=== PATIENT | female | born 1960 | race Caucasian/White ===

== ENCOUNTER 2022-04-11 11:31 | Emergency (ER) | payer OTHER, MEDICARE, MEDICAID | END 2022-04-11 14:14 | disposition home or self-care (01) | LOC: CSHERS 11:31 | DX: S13.4XXA Sprain of ligaments of cervical spine, initial encounter (principal); S16.1XXA Strain of muscle, fascia and tendon at neck level, initial encounter; S09.90XA Unspecified injury of head, initial encounter; I10 Essential (primary) hypertension; Z86.73 Personal history of transient ischemic attack (TIA), and cerebral infarction without residual deficits; V89.2XXA Person injured in unspecified motor-vehicle accident, traffic, initial encounter; Z79.899 Other long term (current) drug therapy | CPT/HCPCS: 70450; 72125 ==